=== PATIENT | female | born 1990 | race Caucasian/White ===

== ENCOUNTER 2016-11-19 15:45 | Emergency (ER) | payer OTHER ==
[~2016-11-19] VITALS: Ht 152.4 cm; Wt 49.9 kg
[~2016-11-19 15:45] MED LIST: BACTRIM
[2016-11-19] MEDS ORDERED: IV NORMAL SALINE 1000 ML BAG IV ONE (16:15)
[2016-11-19 16:25] LABS: *BILIRUBIN,URIN NEGATIVE (NEGATIVE); *BLOOD, URINE NEGATIVE (NEGATIVE); *CLARITY,URINE CLEAR (CLEAR); *COLOR,URINE YELLOW (YELLOW); *KETONES,URINE NEGATIVE (NEGATIVE); *PROTEIN,URINE NEGATIVE (NEGATIVE); *UROBILINOGEN,URINE 0.2 E.U./dl (NORMAL); LEUKOCYTE ESTERASE ,URINE NEGATIVE (NEGATIVE); NITRITE, URINE NEGATIVE (NEGATIVE); PH,URINE 8.5 (5.0-8.0); UGLUCOSE NEGATIVE (NEGATIVE)
[2016-11-19 16:26] LABS: *URINE HCG, QUAL NEGATIVE (NEGATIVE)
--- NOTE | 2016-11-19 16:33 | NUR ---
LAB SADA BLOOD/URINE SENT/1L 0.9NS BOUS INFUSING, PT POSITIONED FOR COMFORT.
[2016-11-19 16:34] LABS: SQUAMOUS EPITHELIAL CELL,UR FEW /HPF (NONE SEEN); WBC,URINE 0-3 /HPF (0-3)
[2016-11-19 16:43] LABS: CREATININE 0.9 mg/dL (0.6-1.3); POTASSIUM 3.7 mmol/L (3.5-5.1)
[2016-11-19 16:48] LABS: ALBUMIN 4.3 g/dL (3.4-5.0); BILIRUBIN,DIRECT 0.1 mg/dL (0.0-0.2); BILIRUBIN,TOTAL 0.3 mg/dL (0.2-1.0); TOTAL PROTEIN, SERUM 8.3 g/dL (6.4-8.2)
[2016-11-19 16:49] LABS: TROPONIN I < 0.017 ng/mL (0.00-0.056)
[2016-11-19 16:53] LABS: LACTIC ACID 0.7 mmol/L (0.4-2.0)
[2016-11-19] MEDS ORDERED: KETOROLAC TROMETHAMINE 30 MG INJ ONE (17:14)
[2016-11-19] MEDS ORDERED: METOCLOPRAMIDE HCL 10 MG/2 ML VIAL ONE (17:14)
[2016-11-19] MEDS ORDERED: METOCLOPRAMIDE HCL 10 MG/2 ML VIAL IV ONE (17:15)
[2016-11-19] MEDS ORDERED: KETOROLAC TROMETHAMINE 30 MG INJ IVP ONE (17:15)
[2016-11-19 17:44] LABS: WHITE BLOOD COUNT (AUTO) 4.6 K/uL (4.0-11.2)
[2016-11-19 17:45] LABS: EOSINOPHILS % (AUTO) 0.2 % (0.0-7.0); HEMATOCRIT 39.8 % (37.0-47.0); HEMOGLOBIN 13.2 g/dL (12.0-16.0); LYMPHOCYTES % (AUTO) 11.8 % (20.5-51.5); MEAN CORPUSCULAR HEMOGLOBIN 28.4 uug (27.0-31.0); MEAN CORPUSCULAR HGB CONC 33 g/dL (32.0-37.0); MEAN CORPUSCULAR VOLUME 85.6 fL (81.0-99.0); MONOCYTES % (AUTO) 11.6 % (0.0-11.0); NEUTROPHILS % (AUTO) 75.8 % (38.5-71.5); PLATELET COUNT (AUTO) 281 K/uL (150-450); RED BLOOD CELL COUNT(AUTO) 4.65 MIL/uL (4.20-5.40); RED CELL DISTRIBUTION WIDTH 14.7 % (11.5-14.5)
[2016-11-19 17:46] LABS: BASOPHILS % (AUTO) 0.6 % (0.0-2.0); LYMPHOCYTES # (AUTO) 0.5 K/uL (0.8-4.8); MONOCYTES # (AUTO) 0.5 K/uL (0.1-1.30); NEUTROPHILS # (AUTO) 3.4 K/uL (1.8-8.9)
--- NOTE | 2016-11-19 18:35 | NUR ---
MSE COMPLETED, IV D/C'D INTACT. PT D/C'D HOME, ACI/SCHOOL NOTE AND RX X 2 GIVEN. PT GOT DRESSED AND AMBULATED W/O DIFF/TOOK ALL BELONGINGS.
[2016-11-19 18:37] VITALS: BP 105/63
== END 2016-11-19 18:37 | disposition home or self-care (01) ==
LOC: ER 15:46
DX: J11.1 Influenza due to unidentified influenza virus with other respiratory manifestations (principal)
CPT/HCPCS: 36415; 80048; 80076; 81001; 83605; 84484; 84703; 85025; 85730; 87040 ×2; 87086; 87400; 96361; 96374; 96375; 99284; A4663; J1885; J2765; J7030; 70030-TC

== ENCOUNTER 2017-02-14 21:24 | Emergency (ER) | payer OTHER ==
[~2017-02-14] VITALS: Ht 152.4 cm; Wt 50.8 kg
[2017-02-14 21:49] LABS: *BILIRUBIN,URIN NEGATIVE (NEGATIVE); *BLOOD, URINE 3+ (NEGATIVE); *KETONES,URINE NEGATIVE (NEGATIVE); *UROBILINOGEN,URINE 0.2 E.U./dl (NORMAL); LEUKOCYTE ESTERASE ,URINE 1+ (NEGATIVE); NITRITE, URINE POSITIVE (NEGATIVE); UGLUCOSE NEGATIVE (NEGATIVE)
[2017-02-14 22:08] LABS: *CLARITY,URINE CLOUDY (CLEAR); *COLOR,URINE Brown (YELLOW); *PROTEIN,URINE 3+ (NEGATIVE)
[2017-02-14 22:09] LABS: BACTERIA,URINE MODERATE /HPF (NONE SEEN); RBC,URINE TNTC /HPF (0-3); SQUAMOUS EPITHELIAL CELL,UR MODERATE /HPF (NONE SEEN); WBC,URINE 20-50 /HPF (0-3)
[2017-02-14 22:18] LABS: *URINE HCG, QUAL NEGATIVE (NEGATIVE)
[2017-02-14] MEDS ORDERED: PHENAZOPYRIDINE HCL 100 MG TABLET PO ONE (22:45)
[2017-02-14] MEDS ORDERED: ONDANSETRON ODT 4 MG TAB.RAPDIS SL ONE (22:45)
[2017-02-14] MEDS ORDERED: CEFTRIAXONE 500 MG VIAL IM ONE (22:45)
[2017-02-14] MEDS ORDERED: AZITHROMYCIN 250 MG TABLET PO ONE (22:45)
[2017-02-14] MEDS ORDERED: ONDANSETRON ODT 4 MG TAB.RAPDIS ONE (23:08)
[2017-02-14] MEDS ORDERED: PHENAZOPYRIDINE HCL 100 MG TABLET ONE (23:08)
[2017-02-14] MEDS ORDERED: AZITHROMYCIN 250 MG TABLET ONE (23:08)
[2017-02-14] MEDS ORDERED: CEFTRIAXONE 500 MG VIAL ONE (23:09)
--- NOTE | 2017-02-14 23:35 | NUR ---
Patient discharged to home in stable conditon. Written and verbal after care instructions given. Patient verbalizes understanding of instructions.
== END 2017-02-14 23:37 | disposition home or self-care (01) ==
LOC: ER 21:25
DX: N30.91 Cystitis, unspecified with hematuria (principal)
CPT/HCPCS: 84703; 87086; 87491; A4663; J0696; Q0144; Q0162